=== PATIENT | female | born 1970 | race Caucasian/White ===

== ENCOUNTER 2016-12-09 17:39 | Emergency (ER) | payer OTHER ==
[~2016-12-09] VITALS: Ht 172.7 cm; Wt 82.0 kg
[2016-12-09] VITALS (7 sets, daily range): BP systolic 114–157; BP diastolic 57–94; PULSE 99–204; RESP 18–30; TEMP 98.5–98.8; O2SAT 97–100
[~2016-12-09 17:39] MED LIST: AMBI10TA PO; B-COTAB41 PO; CETI10 PO; DESO1TAB PO; DIPH25 PO; FA-8800C2 PO; IMOD2TAB PO; MINO100T PO; PAME10CA PO; PRIN10TA PO; PRIS50TA PO; SUMA50 PO; SYNT50TA PO; TAB-TAB PO; VALA500 PO; VENTAER INH; ZOFR4TAB3 SL
[2016-12-09] MEDS ORDERED: ZOFR4TAB3 SL (17:56)
[2016-12-09] MEDS ORDERED: [UNRECOGNIZED DRUG - CODE] PO (17:56)
[2016-12-09] MEDS ORDERED: MINO100 PO (17:56)
[2016-12-09] MEDS ORDERED: PAME10CA PO (17:56)
[2016-12-09] MEDS ORDERED: LISI10TA3 PO (17:56)
[2016-12-09] MEDS ORDERED: LEVO.05 PO (17:56)
[2016-12-09] MEDS ORDERED: AMBI10TA PO (17:56)
[2016-12-09] MEDS ORDERED: VALT500T PO (17:56)
[2016-12-09] MEDS ORDERED: VENTAER INH (17:56)
[2016-12-09] MEDS ORDERED: MULT-135 PO (17:56)
[2016-12-09] MEDS ORDERED: ZYRT10CA PO (17:56)
[2016-12-09] MEDS ORDERED: LOPE7.5C PO (17:56)
[2016-12-09] MEDS ORDERED: IMIT50TA PO (17:56)
[2016-12-09] MEDS ORDERED: FOLI1CAP7 PO (17:56)
[2016-12-09] MEDS ORDERED: BENA25TA3 PO (17:56)
[2016-12-09] MEDS ORDERED: DESO1TAB PO (17:56)
[2016-12-09] MEDS ORDERED: ADENOSINE IV SOLN 3 MG/ML 2 ML VIAL IV PUSH ONE ×2 (18:00)
[2016-12-09] MEDS ORDERED: SODIUM CHLORIDE 0.9% FLUSH 5 ML FLUSH IVF PRN (18:00)
--- NOTE | 2016-12-09 18:09 | PD ---
HPI Chief Complaint: Cardiac Complaint Time Seen by Provider: 17:47 Travel History International Travel<30 days: No Contact w/Intl Traveler<30days: No Traveled to known affect area: No History of Present Illness HPI This a 45-year-old female with history of hypertension, SVT, presents today with complaints of elevated heart rate. Patient states she was at her father's house sat down on a couch and then felt a self converted into SVT. She states she was in it for an hour. She tried vagal maneuvers however was unsuccessful. Patient denies any change in her diet, caffeine intake, daily activity. She states that she had started exercising however did not exercise today. She denies any chest pain but does report palpitations. She is feeling anxious and is concerned about the potential receiving a dental cart. 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 PFSH Past Medical History Arthritis: No Asthma: Yes Anxiety: Yes Depression: Yes Cardiovascular Problems: Yes (HTN) High Cholesterol: No Chest Pain: No Congestive Heart Failure: No COPD: No Cerebrovascular Accident: No Diminished Hearing: No Gastrointestinal Disorders: Yes (IBS) GERD: No Genitourinary: No Headaches: Yes (migraines) Hepatitis: No Hiatal Hernia: No Hypertension: Yes (and pvcs) Kidney Stones: No Medical other: Yes (HERPES) Musculoskeletal: No Neurologic: Yes Reproductive: No Respiratory: Yes (ASTHMA) Migraines: Yes Myocardial Infarction: No Renal Failure: No Seizures: No Sleep Apnea: No Ulcer: No Tetanus Vaccination: < 5 Years ?: Not : 1 Para: 1 Miscarriage: 0 : 0 Ectopic : No Ovarian Cysts: No Tubal Ligation: No Past Surgical History Abdominal Surgery: Yes (2003 c/s) Appendectomy: Yes Cardiac Surgery: No Section: Yes Cholecystectomy: No Ear Surgery: No Endocrine Surgery: No Eye Surgery: No Genitourinary Surgery: No Gynecologic Surgery: No Hysterectomy: No Oral Surgery: Yes (wisdom teeth ) Thoracic Surgery: No Other Surgery: Yes (1991 appendix lap) Social History Alcohol Use: Yes (socially 1 time per week) Tobacco Use: No Substance Use: No Allergies-Medications (Allergen,Severity, Reaction): Coded Allergies: Topamax (Verified Allergy, Severe, Dizzyness., 12/09/16) Darvocet-N 100 (Verified Adverse Reaction, Severe, Nausea/Vomiting, ) Erythromycin (Verified Adverse Reaction, Severe, VOMITING, 12/09/16) Reported Meds & Prescriptions Reported Meds & Active Scripts Active Reported Ambien (Zolpidem Tartrate) 10 Mg Tab 10 Mg PO HS PRN Valtrex (Valacyclovir HCl) 500 Mg Tab 500 Mg PO DAILY Synthroid (Levothyroxine Sodium) 50 Mcg Tab 50 Mcg PO DAILY Zofran Odt (Ondansetron Odt) 4 Mg Tab 4 Mg SL Q12HR PRN Pamelor (Nortriptyline HCl) 10 Mg Cap 10 Mg PO HS Multi Vitamin (Multiple Vitamin) 1 Tab Tab 1 Tab PO DAILY Minocycline (Minocycline HCl) 100 Mg Cap 100 Mg PO BID Imodium A-D (Loperamide HCl) 2 Mg Cap 2 Mg PO DIRECTED PRN One capsule after each loose stool. Not to exceed 8 tablets per day. Lisinopril 10 Mg Tab 10 Mg PO DAILY Imitrex (Sumatriptan Succinate) 50 Mg Tab 50 Mg PO ONCE PRN If a satisfactory response has not been obtained at 2 hours, a second dose may be administered Folic Acid 800 Mcg Cap 800 Mcg PO DAILY Desvenlafaxine ER 24 HR (Desvenlafaxine Succinate) 50 Mg Tab 50 Mg PO DAILY Benadryl Allergy (Diphenhydramine HCl) 25 Mg Tab 25 Mg PO Q6H PRN Desogen (Desogestrel-Ethinyl Estradiol) 0.15-30 Mg-Mcg Tab 1 Tab PO DAILY Zyrtec Allergy (Cetirizine HCl) 10 Mg Cap 10 Mg PO DAILY Ventolin Hfa 18 GM Inh (Albuterol Sulfate) 90 Mcg/Act Aer 2 Puff INH Q4-6H PRN Review of Systems Except as stated in HPI: all other systems reviewed are Neg Cardiovascular: Positive: Palpitations, Tachycardia, No: Chest Pain or Discomfort Physical Exam Narrative GENERAL: Well-nourished, well-developed patient who appears slightly anxious. SKIN: Warm and dry. HEAD: Normocephalic/atraumatic. EYES: No injection or drainage. NECK: Supple, trachea midline. CARDIOVASCULAR: Rate in the 180s to 200s. Regular. No appreciable murmur with the elevated heart rate. The patient does have tricuspid and mitral regurg by history. RESPIRATORY: Breath sounds equal bilaterally. No accessory muscle use. MUSCULOSKELETAL: No cyanosis, or edema. NEUROLOGICAL: Awake and alert. Cranial nerves II through XII intact. Motor grossly within normal limits. Five out of 5 muscle strength in all muscle groups. Normal speech. Data Data Last Documented VS Vital Signs Date Time Temp Pulse Resp B/P Pulse Ox O2 Delivery O2 Flow Rate FiO2 12/09/16 18:15 97 12/09/16 18:14 117 20 128/74 12/09/16 17:57 Room Air 12/09/16 17:43 98.8 Orders Electrocardiogram (12/09/16 17:47) Basic Metabolic Panel (Bmp) (12/09/16 17:47) Ckmb (Isoenzyme) Profile (12/09/16 17:47) Complete Blood Count With Diff (12/09/16 17:47) Troponin I (12/09/16 17:47) Ecg Monitoring (12/09/16 17:47) Bilateral Bp Monitoring (12/09/16 17:47) Iv Access Insert/Monitor (12/09/16 17:47) Oximetry (12/09/16 17:47) Oxygen Administration (12/09/16 17:47) Sodium Chloride 0.9% Flush (Ns Flush) (12/09/16 18:00) Adenosine Inj (Adenocard Inj) (12/09/16 18:00) Sodium Chlor 0.9% 1000 Ml Inj (Ns 1000 M (12/09/16 18:15) CKMB (12/09/16 18:04) CKMB% (12/09/16 18:04) Labs Laboratory Tests Test 12/09/16 18:04 White Blood Count 14.9 TH/MM3 Red Blood Count 4.67 MIL/MM3 Hemoglobin 13.1 GM/DL Hematocrit 40.0 % Mean Corpuscular Volume 85.7 FL Mean Corpuscular Hemoglobin 28.0 PG Mean Corpuscular Hemoglobin 32.7 % Concent Red Cell Distribution Width 13.3 % Platelet Count 385 TH/MM3 Mean Platelet Volume 7.9 FL Neutrophils (%) (Auto) 49.9 % Lymphocytes (%) (Auto) 36.8 % Monocytes (%) (Auto) 7.1 % Eosinophils (%) (Auto) 5.4 % Basophils (%) (Auto) 0.8 % Neutrophils # (Auto) 7.4 TH/MM3 Lymphocytes # (Auto) 5.5 TH/MM3 Monocytes # (Auto) 1.1 TH/MM3 Eosinophils # (Auto) 0.8 TH/MM3 Basophils # (Auto) 0.1 TH/MM3 CBC Comment AUTO DIFF Sodium Level 140 MEQ/L Potassium Level 3.7 MEQ/L Chloride Level 101 MEQ/L Carbon Dioxide Level 26.8 MEQ/L Anion Gap 12 MEQ/L Blood Urea Nitrogen 10 MG/DL Creatinine 1.11 MG/DL Estimat Glomerular Filtration 53 ML/MIN Rate Random Glucose 104 MG/DL Calcium Level 9.1 MG/DL Total Creatine Kinase 123 U/L Creatine Kinase MB 1.9 NG/ML Troponin I LESS THAN 0.02 NG/ML MDM Medical Decision Making Medical Screen Exam Complete: Yes Emergency Medical Condition: Yes Differential Diagnosis SVT versus sinus tach versus ACS Narrative Course 45-year-old female with a history of SVT, last episode 2 years ago, who presents with one hour of SVT. When the patient arrived she was in the heart rate in the 180s to 200s. She was given one dose of Adenocard, 6 mg I V times one dose. Her heart rate dropped down into the 120s. Repeat EKG shows sinus tachycardia. She feels much improved. Laboratory tests are pending at this time. I anticipate she'll be able to be discharged however we are awaiting her laboratory tests including cardiac enzymes. The patient was signed out to Dr. Demetrio Méndez, physician replacing this physician, who will follow up on the labs and make the appropriate disposition. Diagnosis Primary Impression: Supraventricular tachycardia Additional Impression: History of hypertension Ga Pan MD Dec 09, 2016 18:09
[2016-12-09 18:14] LABS: AUTOMATED NEUTROPHIL # 7.4 TH/MM3 (1.8-7.7); BASOPHIL # 0.1 TH/MM3 (0-0.2); BASOPHIL % 0.8 % (0.0-2.0); EOSINOPHIL # 0.8 TH/MM3 (0-0.4); EOSINOPHIL % 5.4 % (0.0-4.0); LYMPH % 36.8 % (9.0-44.0); LYMPHOCYTE # 5.5 TH/MM3 (1.0-4.8); MEAN CELL VOLUME 85.7 FL (80.0-100.0); MEAN CORPUSCULAR HGB CONC 32.7 % (32.0-36.0); MONO % 7.1 % (0.0-8.0); NEUT % 49.9 % (16.0-70.0); PLATELET COUNT 385 TH/MM3 (150-450); RED BLOOD COUNT 4.67 MIL/MM3 (4.00-5.30); RED CELL DISTRIBUTION WIDTH 13.3 % (11.6-17.2); WHITE BLOOD COUNT 14.9 TH/MM3 (4.0-11.0)
[2016-12-09] MEDS ORDERED: SODIUM CHLOR 0.9% 1000 ML INJ 1,000 ML IV ONE (18:15)
[2016-12-09 18:29] LABS: HEMO FLAGS AUTO DIFF
[2016-12-09 18:36] LABS: ANION GAP 12 MEQ/L (5-15); BICARBONATE 26.8 MEQ/L (21.0-32.0); BLOOD UREA NITROGEN 10 MG/DL (7-18); CHLORIDE 101 MEQ/L (98-107); GLOMERULAR FILTRATION RATE 53 ML/MIN (>89); POTASSIUM 3.7 MEQ/L (3.5-5.1); SODIUM (NA) 140 MEQ/L (136-145)
[2016-12-09 18:40] LABS: CREATINE KINASE 123 U/L (26-192)
[2016-12-09 18:52] LABS: CKMB 1.9 NG/ML (0.5-3.6)
--- NOTE | 2016-12-09 19:07 | PD ---
Physical Exam Date Seen by Provider: Dec 09, 2016 Time Seen by Provider: 19:06 Narrative The patient is a 45-year-old female was initially evaluated by the previous physician, Dr. Pan. Please refer to the initial history, physical, diagnostic evaluation, and treatment modality plan. Data Data Last Documented VS Vital Signs Date Time Temp Pulse Resp B/P Pulse Ox O2 Delivery O2 Flow Rate FiO2 12/09/16 18:15 97 12/09/16 18:14 117 20 128/74 12/09/16 17:57 Room Air 12/09/16 17:43 98.8 Orders Electrocardiogram (12/09/16 17:47) Basic Metabolic Panel (Bmp) (12/09/16 17:47) Ckmb (Isoenzyme) Profile (12/09/16 17:47) Complete Blood Count With Diff (12/09/16 17:47) Troponin I (12/09/16 17:47) Ecg Monitoring (12/09/16 17:47) Bilateral Bp Monitoring (12/09/16 17:47) Iv Access Insert/Monitor (12/09/16 17:47) Oximetry (12/09/16 17:47) Oxygen Administration (12/09/16 17:47) Sodium Chloride 0.9% Flush (Ns Flush) (12/09/16 18:00) Adenosine Inj (Adenocard Inj) (12/09/16 18:00) Sodium Chlor 0.9% 1000 Ml Inj (Ns 1000 M (12/09/16 18:15) CKMB (12/09/16 18:04) CKMB% (12/09/16 18:04) Labs Laboratory Tests Test 12/09/16 18:04 White Blood Count 14.9 TH/MM3 Red Blood Count 4.67 MIL/MM3 Hemoglobin 13.1 GM/DL Hematocrit 40.0 % Mean Corpuscular Volume 85.7 FL Mean Corpuscular Hemoglobin 28.0 PG Mean Corpuscular Hemoglobin 32.7 % Concent Red Cell Distribution Width 13.3 % Platelet Count 385 TH/MM3 Mean Platelet Volume 7.9 FL Neutrophils (%) (Auto) 49.9 % Lymphocytes (%) (Auto) 36.8 % Monocytes (%) (Auto) 7.1 % Eosinophils (%) (Auto) 5.4 % Basophils (%) (Auto) 0.8 % Neutrophils # (Auto) 7.4 TH/MM3 Lymphocytes # (Auto) 5.5 TH/MM3 Monocytes # (Auto) 1.1 TH/MM3 Eosinophils # (Auto) 0.8 TH/MM3 Basophils # (Auto) 0.1 TH/MM3 CBC Comment AUTO DIFF Differential Total Cells 100 Counted Neutrophils % (Manual) 61 % Lymphocytes % 32 % Monocytes % 5 % Eosinophils % 2 % Neutrophils # (Manual) 9.1 TH/MM3 Differential Comment FINAL DIFF MANUAL Platelet Estimate NORMAL Platelet Morphology Comment NORMAL Sodium Level 140 MEQ/L Potassium Level 3.7 MEQ/L Chloride Level 101 MEQ/L Carbon Dioxide Level 26.8 MEQ/L Anion Gap 12 MEQ/L Blood Urea Nitrogen 10 MG/DL Creatinine 1.11 MG/DL Estimat Glomerular Filtration 53 ML/MIN Rate Random Glucose 104 MG/DL Calcium Level 9.1 MG/DL Total Creatine Kinase 123 U/L Creatine Kinase MB 1.9 NG/ML Troponin I LESS THAN 0.02 NG/ML MDM Medical Record Reviewed: Yes Supervised Visit with CORINNA: No Interpretation(s) EKG #1 reveals supraventricular tachycardia with a heart rate of 189. Nonspecific ST depression, may be rate related. EKG #2 reveals sinus tachycardia with a heart rate of 125. Laboratory Tests Test 12/09/16 18:04 White Blood Count 14.9 TH/MM3 Red Blood Count 4.67 MIL/MM3 Hemoglobin 13.1 GM/DL Hematocrit 40.0 % Mean Corpuscular Volume 85.7 FL Mean Corpuscular Hemoglobin 28.0 PG Mean Corpuscular Hemoglobin 32.7 % Concent Red Cell Distribution Width 13.3 % Platelet Count 385 TH/MM3 Mean Platelet Volume 7.9 FL Neutrophils (%) (Auto) 49.9 % Lymphocytes (%) (Auto) 36.8 % Monocytes (%) (Auto) 7.1 % Eosinophils (%) (Auto) 5.4 % Basophils (%) (Auto) 0.8 % Neutrophils # (Auto) 7.4 TH/MM3 Lymphocytes # (Auto) 5.5 TH/MM3 Monocytes # (Auto) 1.1 TH/MM3 Eosinophils # (Auto) 0.8 TH/MM3 Basophils # (Auto) 0.1 TH/MM3 CBC Comment AUTO DIFF Differential Total Cells 100 Counted Neutrophils % (Manual) 61 % Lymphocytes % 32 % Monocytes % 5 % Eosinophils % 2 % Neutrophils # (Manual) 9.1 TH/MM3 Differential Comment FINAL DIFF MANUAL Platelet Estimate NORMAL Platelet Morphology Comment NORMAL Sodium Level 140 MEQ/L Potassium Level 3.7 MEQ/L Chloride Level 101 MEQ/L Carbon Dioxide Level 26.8 MEQ/L Anion Gap 12 MEQ/L Blood Urea Nitrogen 10 MG/DL Creatinine 1.11 MG/DL Estimat Glomerular Filtration 53 ML/MIN Rate Random Glucose 104 MG/DL Calcium Level 9.1 MG/DL Total Creatine Kinase 123 U/L Creatine Kinase MB 1.9 NG/ML Troponin I LESS THAN 0.02 NG/ML Differential Diagnosis Differential diagnosis includes arrhythmia, SVT, dehydration, WPW, electrolyte abnormality, mitral valve prolapse. Narrative Course The patient was initially evaluated by Dr. Pan, please refer to the initial history, physical, diagnostic evaluation, and treatment modality plan. The patient was signed out at 7 PM laboratory evaluation pending. The patient presented with SVT, has a history of SVT, but has not had an episode in several years. The patient was administered a dental cart which brought her down to a sinus tachycardia that varied between 105 and 1:15. The patient's symptoms significantly improved. The patient does have a wheel filler. The patient was reevaluated, her symptoms had significantly improved. The patient will be placed on low-dose beta lion, Lopressor 12.5 mg twice a day. She will also be provided a copy of her EKG and lab work at discharge. She is advised to follow-up with her wheel filler return if symptoms worsen or progress. Diagnosis Primary Impression: Supraventricular tachycardia Patient Instructions: General Instructions Additional Instruction: Medications as directed. Please provide the patient copy of both EKGs that were performed and her lab results. Follow-up with cardiology. Return if symptoms worsen or progress. Med/Other Pt SpecificInfo: Prescription(s) given Scripts Metoprolol Tartrate (Lopressor)50 Mg Tab12.5 Mg PO BID 30 Days Ref 0 Prov:Demetrio Méndez MD 12/09/16 Disposition: 01 DISCHARGE HOME Condition: Stable Demetrio Méndez MD Dec 09, 2016 19:07
[2016-12-09 19:08] LABS: EOSINOPHILS 2 % (0-4); NEUTROPHIL # MANUAL DIFF 9.1 TH/MM3 (1.8-7.7); POLYS (SEG NEUTROPHILS) 61 % (16-70); WBC DIFF SAMPLE 100
[2016-12-09 19:09] LABS: PLATELET ESTIMATE SMEAR NORMAL (NORMAL); PLATELET MORPHOLOGY NORMAL (NORMAL); SCAN/DIFF FINAL DIFF MANUAL
[2016-12-09] MEDS ORDERED: METO-309 PO (19:27)
[2016-12-09] MEDS ORDERED: METOPROLOL TARTRATE 25 MG TAB PO ONE (19:30)
--- NOTE | 2016-12-09 21:02 | EKG ---
Date Performed: 12/09/2016 Time Performed: 17:49:49 PTAGE: 45 years EKG: SUPRAVENTRICULAR TACHYCARDIA ST DEPRESSION, NONSPECIFIC ABNORMAL ECG NO PREVIOUS TRACING DOCTOR: Jed Hancock Interpretating Date/Time 12/09/2016 21:01:28
--- NOTE | 2016-12-09 21:02 | EKG ---
Date Performed: 12/09/2016 Time Performed: 18:00:03 PTAGE: 45 years EKG: SINUS TACHYCARDIA ABNORMAL RHYTHM ECG PREVIOUS TRACING : 04/10/2016 18.27 Compared to previous tracing, sinus tachycardia has replace d supraventricular tachycardia. DOCTOR: Jed Hancock Interpretating Date/Time 12/09/2016 21:01:01
== END 2016-12-09 19:49 | disposition home or self-care (01) ==
LOC: NEPE 17:39
DX: I47.1 Supraventricular tachycardia (principal); I10 Essential (primary) hypertension
CPT/HCPCS: 80048; 82550; 82552; 84484; 85007; 85027; 93005; 96361; 96374; 99284; J0153; J7030

== ENCOUNTER → 2016-12-22 | Outpatient (CLI) | payer OTHER ==
[~2016-12-22] MED LIST changes: -B-COTAB41 PO; +BENA25TA3 PO; -CETI10 PO; -DIPH25 PO; -FA-8800C2 PO; +FOLI1CAP7 PO; +IMIT50TA PO; -IMOD2TAB PO; +LEVO.05 PO; +LISI10TA3 PO; +LOPE7.5C PO; +METO-309 PO; +MINO100 PO; -MINO100T PO; +MULT-135 PO; -PRIN10TA PO; -PRIS50TA PO; -SUMA50 PO; -SYNT50TA PO; -TAB-TAB PO; -VALA500 PO; +VALT500T PO; +ZYRT10CA PO; +[UNRECOGNIZED DRUG - CODE] PO
[2016-12-22 09:55] LABS: ALKALINE PHOSPHATASE 63 U/L (45-117); ALT (GPT) 25 U/L (10-53); ANION GAP 6 MEQ/L (5-15); AST (GOT) 18 U/L (15-37); BLOOD UREA NITROGEN 10 MG/DL (7-18); CHLORIDE 104 MEQ/L (98-107); GLOMERULAR FILTRATION RATE 67 ML/MIN (>89); GLUCOSE,FASTING 99 MG/DL (74-99); HDL CHOLESTEROL 82.4 MG/DL (40.0-60.0); LDL CHOLESTEROL 90 MG/DL (0-99); POTASSIUM 4.2 MEQ/L (3.5-5.1); SODIUM (NA) 140 MEQ/L (136-145); TOTAL BILIRUBIN ADULT 0.3 MG/DL (0.2-1.0)
== END ==
LOC: CLAB 08:40
PROVIDERS: ATTEND Family Medicine
DX: I10 Essential (primary) hypertension (principal); E03.9 Hypothyroidism, unspecified
CPT/HCPCS: 36415; 80053; 80061; 84443

== ENCOUNTER → 2017-07-17 | Outpatient (CLI) | payer OTHER ==
[2017-07-17 16:03] LABS: ALT (GPT) 23 U/L (10-53); ANION GAP 6 MEQ/L (5-15); AST (GOT) 16 U/L (15-37); BLOOD UREA NITROGEN 6 MG/DL (7-18); CHLORIDE 104 MEQ/L (98-107); GLOMERULAR FILTRATION RATE 81 ML/MIN (>89); POTASSIUM 4.4 MEQ/L (3.5-5.1); SODIUM (NA) 137 MEQ/L (136-145)
[2017-07-17 16:12] LABS: ALKALINE PHOSPHATASE 82 U/L (45-117); TOTAL BILIRUBIN ADULT 0.4 MG/DL (0.2-1.0)
== END ==
LOC: PLAB 13:32
PROVIDERS: ATTEND Family Medicine
DX: I10 Essential (primary) hypertension (principal); E03.9 Hypothyroidism, unspecified
CPT/HCPCS: 80053; 84443

== ENCOUNTER 2017-11-20 22:33 | Emergency (ER) | payer OTHER ==
[2017-11-20 22:36] VITALS: BP 109/65; PULSE 98; RESP 16; TEMP 98.7; O2SAT 100
--- NOTE | 2017-11-20 23:04 | PD ---
HPI Chief Complaint: Exposure to Blood/Body Fluids Time Seen by Provider: 22:51 Travel History International Travel<30 days: No Contact w/Intl Traveler<30days: No Traveled to known affect area: No History of Present Illness HPI The patient was seen and examined in the presence of the nurse. 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 She experienced a needlestick to the left thumb. This happened at 9: 25 PM. Duration 95 minutes. She stuck herself with a clean unused needle but it went through a bloody glove. She knows that the patient has HIV negative status and hepatitis B negative status. Hepatitis C status is unknown. Symptoms severity is mild. PFSH Past Medical History Arthritis: No Asthma: Yes Anxiety: Yes Depression: Yes Cardiovascular Problems: Yes (HTN) High Cholesterol: No Chest Pain: No Congestive Heart Failure: No COPD: No Cerebrovascular Accident: No Diminished Hearing: No Gastrointestinal Disorders: Yes (IBS) GERD: No Genitourinary: No Headaches: Yes (migraines) Hepatitis: No Hiatal Hernia: No Hypertension: Yes (and pvcs) Kidney Stones: No Musculoskeletal: No Neurologic: Yes Reproductive: No Respiratory: Yes (ASTHMA) Migraines: Yes Myocardial Infarction: No Renal Failure: No Seizures: No Sleep Apnea: No Ulcer: No : 1 Para: 1 Miscarriage: 0 : 0 Ectopic : No Ovarian Cysts: No Tubal Ligation: No Past Surgical History Abdominal Surgery: Yes (2003 c/s) Appendectomy: Yes Cardiac Surgery: No Section: Yes Cholecystectomy: No Ear Surgery: No Endocrine Surgery: No Eye Surgery: No Genitourinary Surgery: No Gynecologic Surgery: No Hysterectomy: No Oral Surgery: Yes (wisdom teeth ) Thoracic Surgery: No Other Surgery: Yes (1991 appendix lap) Social History Alcohol Use: Yes (socially 1 time per week) Tobacco Use: No Substance Use: No Allergies-Medications (Allergen,Severity, Reaction): Coded Allergies: topiramate (Unverified Allergy, Severe, Dizzyness., 11/20/17) acetaminophen (Unverified Adverse Reaction, Severe, Nausea/Vomiting, ) erythromycin base (Unverified Adverse Reaction, Severe, VOMITING, 11/20/17) propoxyphene (Unverified Adverse Reaction, Severe, Nausea/Vomiting, 11/20/17 ) Reported Meds & Prescriptions Reported Meds & Active Scripts Active Valtrex (Valacyclovir HCl) 500 Mg Tab 500 Mg PO DAILY Desogen (Desogestrel-Ethinyl Estradiol) 0.15-30 Mg-Mcg Tab 1 Tab PO DAILY Lopressor (Metoprolol Tartrate) 50 Mg Tab 12.5 Mg PO BID 30 Days Reported Ambien (Zolpidem Tartrate) 10 Mg Tab 10 Mg PO HS PRN Synthroid (Levothyroxine Sodium) 50 Mcg Tab 50 Mcg PO DAILY Zofran Odt (Ondansetron Odt) 4 Mg Tab 4 Mg SL Q12HR PRN Pamelor (Nortriptyline HCl) 10 Mg Cap 10 Mg PO HS Multi Vitamin (Multiple Vitamin) 1 Tab Tab 1 Tab PO DAILY Minocycline (Minocycline HCl) 100 Mg Cap 100 Mg PO BID Imodium A-D (Loperamide HCl) 2 Mg Cap 2 Mg PO DIRECTED PRN One capsule after each loose stool. Not to exceed 8 tablets per day. Lisinopril 10 Mg Tab 10 Mg PO DAILY Imitrex (Sumatriptan Succinate) 50 Mg Tab 50 Mg PO ONCE PRN If a satisfactory response has not been obtained at 2 hours, a second dose may be administered Folic Acid 800 Mcg Cap 800 Mcg PO DAILY Desvenlafaxine ER 24 HR (Desvenlafaxine Succinate) 50 Mg Tab 50 Mg PO DAILY Benadryl Allergy (Diphenhydramine HCl) 25 Mg Tab 25 Mg PO Q6H PRN Zyrtec Allergy (Cetirizine HCl) 10 Mg Cap 10 Mg PO DAILY Ventolin Hfa 18 GM Inh (Albuterol Sulfate) 90 Mcg/Act Aer 2 Puff INH Q4-6H PRN Review of Systems General / Constitutional: No: Fever HENT: No: Headaches Cardiovascular: No: Chest Pain or Discomfort Respiratory: No: Cough Physical Exam Narrative Psych: Normal mood and affect. Normal insight and judgment. SKIN: Focused skin assessment reveals no rash or ulcers. Skin is warm and dry. Palpation shows no induration or nodules. Left thumb has some slight bruising Data Data Last Documented VS Vital Signs Date Time Temp Pulse Resp B/P (MAP) Pulse Ox O2 Delivery O2 Flow Rate FiO2 11/20/17 22:36 98.7 98 16 109/65 (80) 100 MDM Medical Decision Making Medical Screen Exam Complete: Yes Emergency Medical Condition: Yes Medical Record Reviewed: Yes Differential Diagnosis Needle stick injury, exposure, contusion Narrative Course I have reviewed the patient's electronic medical record. We will follow the instructions and the exposure packet. Some lab studies will be drawn as baseline for this patient and she will be referred to employee med. She does not require HIV prophylaxis medications as the source patient is negative. Diagnosis Primary Impression: Needle stick injury of finger of left hand Qualified Codes: S61.239A - Puncture wound without foreign body of unspecified finger without damage to nail, initial encounter; W27.3XXA - Contact with needle (sewing), initial encounter Additional Instructions: Follow-up with employee med Med/Other Pt SpecificInfo: Other Disposition: 01 DISCHARGE HOME Condition: Stable Denton Galvan MD Nov 20, 2017 23:03
== END 2017-11-20 23:54 | disposition home or self-care (01) ==
LOC: NEPD 22:33
DX: S61.032A Puncture wound without foreign body of left thumb without damage to nail, initial encounter (principal); W46.0XXA Contact with hypodermic needle, initial encounter; Y93.F9 Activity, other caregiving; Y92.234 Operating room of hospital as the place of occurrence of the external cause; Y99.0 Civilian activity done for income or pay
CPT/HCPCS: 99281

== ENCOUNTER → 2018-01-23 | Outpatient (CLI) | payer OTHER ==
[2018-01-23 13:43] LABS: ALBUMIN 3.2 GM/DL (3.4-5.0); AST (GOT) 20 U/L (15-37); BICARBONATE 26.4 MEQ/L (21.0-32.0); BLOOD UREA NITROGEN 10 MG/DL (7-18); CALCIUM 8.7 MG/DL (8.5-10.1); CHLORIDE 107 MEQ/L (98-107); CREATININE 0.92 MG/DL (0.50-1.00); GLOMERULAR FILTRATION RATE 65 ML/MIN (>89); GLUCOSE,FASTING 100 MG/DL (74-99); SODIUM (NA) 140 MEQ/L (136-145)
[2018-01-23 13:44] LABS: CHOLESTEROL 227 MG/DL (120-200)
[2018-01-23 13:55] LABS: ALKALINE PHOSPHATASE 78 U/L (45-117); ALT (GPT) 26 U/L (10-53); CHOLESTEROL/ HDL RATIO 2.97 RATIO; HDL CHOLESTEROL 76.3 MG/DL (40.0-60.0); LDL CHOLESTEROL 121 MG/DL (0-99); TOTAL BILIRUBIN ADULT 0.4 MG/DL (0.2-1.0); TRIGLYCERIDES 147 MG/DL (42-150)
== END ==
LOC: PLAB 09:00
PROVIDERS: ATTEND Family Medicine
DX: Z00.00 Encounter for general adult medical examination without abnormal findings (principal); I10 Essential (primary) hypertension; E03.9 Hypothyroidism, unspecified
CPT/HCPCS: 36415; 80053; 80061; 84443